=== PATIENT | female | born 1960 | race Caucasian/White ===

== ENCOUNTER → 2020-07-30 12:05 | Outpatient (CLI) | payer OTHER, SELFPAY ==
--- NOTE | 2020-07-30 12:10 | DI.US.S_ITS ---
PROCEDURE: US PERIPH VENOUS LOW EXTREM RT INDICATIONS: RIGHT THIGH PAIN TECHNIQUE: Real-time imaging, as well as color and pulse Doppler interrogation, were performed of the lower extremity deep veins from the inguinal ligament to the popliteal fossa. COMPARISON: None. FINDINGS: Occlusive superficial venous thrombus is seen in the proximal to mid right greater saphenous vein. The proximal extent is located near the confluence with the femoral vein. The common femoral, femoral and popliteal veins are normally compressible, and free of intraluminal thrombus. Color and pulse Doppler demonstrate normal phasic intraluminal flow. There is normal augmentation response to distal compression maneuver. IMPRESSION: Occlusive thrombus is seen within the superficial greater saphenous vein near its confluence with the femoral vein. No deep venous thrombosis is seen in the remainder of the right lower extremity. Findings were conveyed to the ordering physician, Dr. Tapia, by the manager switch on 07/30/2020 at 12:42 PM (Prentiss time). Dictated by: Dayton Morrison M.D. on 07/30/2020 at 12:05 Approved by: Dayton Morrison M.D. on 07/30/2020 at 12:12
== END ==
PROVIDERS: PCP Family Medicine; Referring Provider Family Medicine; Visit Provider Family Medicine
DX: I82.811 Embolism and thrombosis of superficial veins of right lower extremity (principal); M79.651 Pain in right thigh
CPT/HCPCS: 93971

== ENCOUNTER → 2023-03-19 12:17 | Outpatient (CLI) | payer OTHER, SELFPAY ==
--- NOTE | 2023-03-19 | DI.RAD.S_ITS ---
PROCEDURE: XR CHEST 2V INDICATIONS: Unspecified asthma, uncomplicated TECHNIQUE: 2 views of the chest were acquired. COMPARISON: [facility], , CHEST 2 VIEW, 07/12/2015, 18:49. FINDINGS: Surgical changes and devices: None. Lungs and pleura: Lungs are clear. No pleural effusions or pneumothorax. No interval change compared to 07/12/2015. Mediastinum: Mediastinal contours are normal. Heart size is normal. Bones and chest wall: No suspicious bony abnormalities. Soft tissues appear unremarkable. IMPRESSION: No acute cardiopulmonary abnormality is seen. Dictated by: Jose Alberto Sommers M.D. on 03/19/2023 at 15:06 Approved by: Jose Alberto Sommers M.D. on 03/19/2023 at 15:07
== END ==
PROVIDERS: PCP Family Medicine; Referring Provider Family Medicine; Visit Provider Family Medicine
DX: J45.909 Unspecified asthma, uncomplicated (principal)
CPT/HCPCS: 71046

== ENCOUNTER 2024-08-10 18:19 | Inpatient (IN) | payer OTHER, SELFPAY ==
[2024-08-10] VITALS (19 sets, daily range): BP systolic 130–203; BP diastolic 58–81; PULSE 89–102; RESP 12–24; TEMP 36.6; O2SAT 65–100; BMI 24.3
--- NOTE | 2024-08-10 18:33 | DI.RAD.S_ITS ---
PROCEDURE: XR CHEST 1V INDICATIONS: Shortness of breath TECHNIQUE: One view of the chest was acquired. COMPARISON: [facility], CR, XR CHEST 2V, 03/19/2023, 12:29. FINDINGS: Surgical changes and devices: None. Lungs and pleura: Lungs are clear. No pleural effusions or pneumothorax. Mediastinum: Mediastinal contours appear normal. Heart size is upper limits of normal. Atherosclerotic vascular calcification noted in the aortic arch. Bones and chest wall: No suspicious bony lesions. Overlying soft tissues appear unremarkable. IMPRESSION: No acute cardiopulmonary abnormality is seen. Approved by: Cory Noriega M.D. on 08/10/2024 at 18:04
[2024-08-10] MEDS: ALBUTEROL/IPRATROPIUM 3 ML AMPUL 6 ML INH (18:46)
--- NOTE | 2024-08-10 18:49 | EKG_ITS ---
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
[2024-08-10 18:51] LABS: INR 0.9 (0.9-1.3); Prothrombin Time 10.5 SECONDS (9.4-12.5)
--- NOTE | 2024-08-10 18:53 | ED.SOB ---
HPI - SOB/Dyspnea General Chief Complaint: Shortness of Breath/Dyspnea Stated Complaint: MUNSON, SOB, pulse ox 70 Time Seen by Provider: 08/10/24 18:44 Source: patient and family Mode of arrival: Ambulatory Limitations: no limitations History of Present Illness HPI Narrative: 64-year-old female history of Arnold Chiari malformation, scoliosis, asthma, smoker presents with cough, shortness of breath, wheezing, weakness started on Sunday gave herself a few DuoNebs without any significant relief of her symptoms came in today with O2 sat of 65% here on room air but denies chest pain fever chills runny nose sore throat or sick contacts. Other than what is stated 14 point review of system is negative Related Data Home Medications Medication Instructions Recorded Confirmed amlodipine 5 mg tablet 5 mg PO DAILY 08/10/24 08/10/24 aspirin 325 mg tablet 325 mg PO DAILY 08/10/24 08/10/24 cetirizine 10 mg tablet (Zyrtec) mg 08/10/24 hydrocodone 5 mg-acetaminophen 325 1 - 2 tab PO Q4H PRN pain 08/10/24 08/10/24 mg tablet ipratropium 0.5 mg-albuterol 3 mg ml inhalation 08/10/24 (2.5 mg base)/3 mL nebulization soln morphine 60 mg tablet,extended 60 mg PO 3XD 08/10/24 08/10/24 release ondansetron 4 mg disintegrating 4 mg PO Q4-6H PRN Nausea And 08/10/24 08/10/24 tablet Vomiting Allergies Allergy/AdvReac Type Severity Reaction Status Date / Time Morphine Allergy Unknown Uncoded 08/10/24 18:32 Review of Systems Review of Systems ROS Unobtainable: All systems reviewed & are unremarkable except as noted in HPI and below Patient History Medical History (Updated 08/10/24 @ 22:18 by Alexander Keane DO) Scoliosis High blood pressure Chiari malformation Asthma Surgical History (Updated 08/10/24 @ 18:37 by Marni Waggoner RN) S/P PROCESS PUMPER shunt Social History Smoking Status: Current every day smoker Smoking Status: Current every day smoker tobacco type: cigarettes Exam Narrative Exam Narrative: GENERAL: [85] year old patient appears stated age. Well-developed patient, in moderate distress. HEAD: Atraumatic. Normocephalic. EYES: Pupils equal round and reactive. Extraocular motions intact. No scleral icterus. No injection or drainage. ENT: Nose without bleeding, purulent drainage. Throat without erythema, tonsillar hypertrophy or exudate. Airway patent. NECK: Trachea midline. Non tender CARDIOVASCULAR: Regular rate and rhythm without murmurs, gallops, or rubs. RESPIRATORY: Coarse rhonchi b/l with faint wheeze at bases GASTROINTESTINAL: Abdomen soft, non-tender, nondistended. EXTREMITIES: No edema or joint tenderness. BACK: Nontender without deformity or crepitance. No flank tenderness. NEURO: AOx3. SKIN: No rash or erythema of visible areas Initial Vital Signs Initial Vital Signs: Vital Signs Pulse Rate 96 H 08/10/24 18:25 Respiratory Rate 24 08/10/24 18:25 Blood Pressure 176/81 H 08/10/24 18:25 Pulse Oximetry 65 L 08/10/24 18:25 Oxygen Delivery Method Room Air 08/10/24 18:25 Course Orders Ordered: ED Orders 08/10/24 18:32 Complete Blood Count AUTO DIFF Stat Comprehensive Metabolic Panel Stat Lactate (Lactic Acid) Stat NT-proBNP (BNP-Adult 18+) Stat Prothrombin Time INR Stat Troponin I Stat 08/10/24 18:33 XR chest 1V Stat EKG-12 Lead Stat Measure peak expiratory flow ONCE RT Consult Eval and Treat NOW 08/10/24 18:38 Covid-19 + FLU A/B + RSV - PCR Stat 08/10/24 19:23 Blood Culture Stat 08/10/24 19:35 CT angio chest PE protocol Stat 08/10/24 20:50 Arterial Blood Gas STAT Discontinued Medications Hydrocodone Bitart/Acetaminophen (Hydrocodone/Acet 5/325 Tablet) 1 tab PO NOW ONE Stop: 08/10/24 19:38 Last Admin: 08/10/24 19:42 Dose: 1 tab Documented By: CHRISTINA Albuterol/Ipratropium (Albuterol/Ipratropium 3 Ml Ampul) 6 ml INH NOW ONE Stop: 08/10/24 18:41 Last Admin: 08/10/24 18:46 Dose: 6 ml Documented By: LLOYD Albuterol/Ipratropium (Albuterol/Ipratropium 3 Ml Ampul) 3 ml INH NOW ONE Stop: 08/10/24 21:12 Last Admin: 08/10/24 21:18 Dose: 3 ml Documented By: LLOYD Ceftriaxone Sodium 1,000 mg/ (Sodium Chloride) 100 mls @ 200 mls/hr IV NOW ONE Stop: 08/10/24 20:52 Azithromycin 500 mg/ Dextrose 250 mls @ 250 mls/hr IV NOW ONE Stop: 08/10/24 20:52 Last Admin: 08/10/24 21:29 Dose: 250 mls/hr Documented By: CHRISTINA Methylprednisolone (Methylprednisolone 125 Mg/2 Ml Vial) 125 mg IV NOW ONE Stop: 08/10/24 18:53 Last Admin: 08/10/24 19:03 Dose: 125 mg Documented By: NICHOLAS Vital Signs Vital signs: Vital Signs - 8 hr 08/10/24 18:25 08/10/24 18:26 08/10/24 18:26 Pulse Rate 96 H 102 H Respiratory Rate 24 Blood Pressure 176/81 H 176/81 H Pulse Oximetry 65 L 77 L Oxygen Delivery Method Room Air Room Air Oxygen Flow Rate Fraction of Inspired Oxygen 08/10/24 18:30 08/10/24 18:42 08/10/24 18:46 Pulse Rate 92 H 91 H Respiratory Rate 21 22 24 Blood Pressure Pulse Oximetry 100 98 92 Oxygen Delivery Method Non -Rebreather Nasal Cannula Nasal Cannula Oxygen Flow Rate 15 2 2 Fraction of Inspired Oxygen 28 08/10/24 18:51 08/10/24 18:51 08/10/24 19:00 Pulse Rate 92 H Respiratory Rate 19 Blood Pressure 203/80 H 171/58 H Pulse Oximetry 94 Oxygen Delivery Method Nasal Cannula Oxygen Flow Rate 2 Fraction of Inspired Oxygen 08/10/24 19:00 08/10/24 19:01 08/10/24 19:30 Pulse Rate 91 H 91 H Respiratory Rate 21 14 Blood Pressure 171/58 H 147/68 H Pulse Oximetry 95 90 L Oxygen Delivery Method Nasal Cannula Oxygen Flow Rate 2 Fraction of Inspired Oxygen 08/10/24 19:30 08/10/24 20:00 08/10/24 20:00 Pulse Rate 92 H 92 H Respiratory Rate 12 18 Blood Pressure 147/71 H Pulse Oximetry 90 L Oxygen Delivery Method Nasal Cannula Oxygen Flow Rate 2 Fraction of Inspired Oxygen 08/10/24 20:30 08/10/24 21:00 08/10/24 21:18 Pulse Rate 91 H 91 H 89 Respiratory Rate 13 17 14 Blood Pressure Pulse Oximetry 92 90 L Oxygen Delivery Method Nasal Cannula Oxygen Flow Rate 4 Fraction of Inspired Oxygen 36 08/10/24 21:30 08/10/24 21:43 08/10/24 21:43 Pulse Rate 90 96 H Respiratory Rate 15 17 Blood Pressure 130/65 Pulse Oximetry 92 92 Oxygen Delivery Method Nasal Cannula Oxygen Flow Rate 4 Fraction of Inspired Oxygen MDM - SOB/Dyspnea Lab Data 08/10/24 18:32 08/10/24 18:32 Labs: Lab Results 08/10/24 08/10/24 08/10/24 Range/Units 18:32 18:38 20:33 WBC 9.1 (4.5-11.0) X10^3/uL RBC 4.69 (4.0-5.2) X10^6/uL Hgb 15.1 (12.0-16.0) g/dL Hct 43.9 (36-46) % MCV 93.7 (80-100) fL MCH 32.2 (26-34) PG MCHC 34.4 (30-36) % RDW 13.8 (11.6-14.8) % Plt Count 234 (150-400) X10^3/uL Neut % (Auto) 85.8 H (50-75) % Lymph % (Auto) 7.6 L (25-40) % Robeson % (Auto) 6.2 (3-14) % Eos % (Auto) 0.0 L (2-4) % Baso % (Auto) 0.4 (0-2) % Neut # (Auto) 7800 H (7220-0171) /uL Lymph # (Auto) 700 L (0740-8119) /uL Robeson # (Auto) 600 (0-900) /uL Eos # (Auto) 0 (0-450) /uL Baso # (Auto) 0 (0-100) /uL PT 10.5 (9.4-12.5) SECONDS INR 0.9 (0.9-1.3) ABG Sample Site ABG pH (7.35-7.45) ABG pCO2 (35-45) mmHg ABG pO2 (80-100) mmHg ABG HCO3 (23-27) mmol/L ABG Total CO2 (23-27) mmol/L ABG O2 Saturation (95-100) % ABG Base Excess (-2-3) mmol/L Ash Test O2 Delivery Device FiO2 % % Sodium 141 (137-145) mmol/L Potassium 3.8 (3.4-5.1) mmol/L Chloride 101 (98-107) mmol/L Carbon Dioxide 28 (22-32) mmol/L BUN 15 (7-17) mg/dL Creatinine 0.74 (0.52-1.04) mg/dL Estimated GFR > 60 (>60) mL/min BUN/Creatinine Ratio 20.3 (6-22) Glucose 169 H (80-110) mg/dL Lactate 2.5 H 1.8 (0.7-2.1) mmol/L Calcium 9.6 (8.4-10.2) mg/dL Total Bilirubin 0.6 (0.2-1.3) mg/dL AST 46 H (14-36) IU/L ALT 38 H (<35) IU/L Alkaline Phosphatase 114 (38-126) U/L Troponin I < 0.012 (0.01-0.034) ng/mL NT-Pro-B Natriuret Pep 5220 H (<125) pg/mL Total Protein 8.2 (6.3-8.2) g/dL Albumin 4.6 (3.5-5.0) g/dL Globulin 3.6 (1.7-4.1) g/dL Albumin/Globulin Ratio 1.3 (1.0-2.8) SARS-CoV-2 (PCR) Negative (Negative) Influenza A (RT-PCR) Flu a negative (NEGATIVE) Influenza B (RT-PCR) Flu b negative (NEGATIVE) RSV (PCR) Negative (Negative) 08/10/24 Range/Units 21:04 WBC (4.5-11.0) X10^3/uL RBC (4.0-5.2) X10^6/uL Hgb (12.0-16.0) g/dL Hct (36-46) % MCV (80-100) fL MCH (26-34) PG MCHC (30-36) % RDW (11.6-14.8) % Plt Count (150-400) X10^3/uL Neut % (Auto) (50-75) % Lymph % (Auto) (25-40) % Robeson % (Auto) (3-14) % Eos % (Auto) (2-4) % Baso % (Auto) (0-2) % Neut # (Auto) (6332-8321) /uL Lymph # (Auto) (9542-4651) /uL Robeson # (Auto) (0-900) /uL Eos # (Auto) (0-450) /uL Baso # (Auto) (0-100) /uL PT (9.4-12.5) SECONDS INR (0.9-1.3) ABG Sample Site Right radial ABG pH 7.37 (7.35-7.45) ABG pCO2 57.9 H (35-45) mmHg ABG pO2 57 L (80-100) mmHg ABG HCO3 33 H (23-27) mmol/L ABG Total CO2 33 H (23-27) mmol/L ABG O2 Saturation 87 L (95-100) % ABG Base Excess 6.2 H (-2-3) mmol/L Ash Test Positive O2 Delivery Device Cannula FiO2 % 32.0 % % Sodium (137-145) mmol/L Potassium (3.4-5.1) mmol/L Chloride (98-107) mmol/L Carbon Dioxide (22-32) mmol/L BUN (7-17) mg/dL Creatinine (0.52-1.04) mg/dL Estimated GFR (>60) mL/min BUN/Creatinine Ratio (6-22) Glucose (80-110) mg/dL Lactate (0.7-2.1) mmol/L Calcium (8.4-10.2) mg/dL Total Bilirubin (0.2-1.3) mg/dL AST (14-36) IU/L ALT (<35) IU/L Alkaline Phosphatase (38-126) U/L Troponin I (0.01-0.034) ng/mL NT-Pro-B Natriuret Pep (<125) pg/mL Total Protein (6.3-8.2) g/dL Albumin (3.5-5.0) g/dL Globulin (1.7-4.1) g/dL Albumin/Globulin Ratio (1.0-2.8) SARS-CoV-2 (PCR) (Negative) Influenza A (RT-PCR) (NEGATIVE) Influenza B (RT-PCR) (NEGATIVE) RSV (PCR) (Negative) Imaging Data Chest x-ray: Radiologist's Impression: [address] [address] XRay Report Signed Patient: Puneet Altamirano MR#: [id number] : 1960 Acct:[id number] Age/Sex: 64 / F Date of Service: 08/10/24 Loc: ED Accession Number: [id number] Procedure: XR chest 1V Ordering Provider: Alexander Keane D.O. PROCEDURE: XR CHEST 1V INDICATIONS: Shortness of breath TECHNIQUE: One view of the chest was acquired. COMPARISON: [facility], XR CHEST 2V, 03/19/2023, 12:29. FINDINGS: Surgical changes and devices: None. Lungs and pleura: Lungs are clear. No pleural effusions or pneumothorax. Mediastinum: Mediastinal contours appear normal. Heart size is upper limits of normal. Atherosclerotic vascular calcification noted in the aortic arch. Bones and chest wall: No suspicious bony lesions. Overlying soft tissues appear unremarkable. IMPRESSION: No acute cardiopulmonary abnormality is seen. Approved by: Cory Noriega M.D. on 08/10/2024 at 18:[address] [address] [address] Scan Report Signed Patient: Puneet Altamirano MR#: [id number] : 1960 Acct:[id number] Age/Sex: 64 / F Date of Service: 08/10/24 Loc: ED Accession Number: [id number] Procedure: CT angio chest PE protocol Ordering Provider: Alexander Keane D.O. PROCEDURE: CT ANGIO CHEST PE PROTOCOL INDICATIONS: sob hypoxia 02 sat 65 TECHNIQUE: After the administration of intravenous contrast, 2 mm thick sections acquired from the pulmonary apices to the posterior costophrenic angles. 3-dimensional maximum intensity projection (MIP) coronal and sagittal reformats were then acquired through the thorax. For radiation dose reduction, the following was used: automated exposure control, adjustment of mA and/or kV according to patient size. COMPARISON: [facility], XR CHEST 1V, 08/10/2024, 18:36. FINDINGS: Image quality: Diagnostic. Pulmonary arteries: Main pulmonary artery is measuring 3.1 cm, and demonstrate no intraluminal filling defects to suggest central pulmonary embolism. Lower Neck: No enlarged lymph nodes. Thyroid: No thyroid nodules which require sonographic follow up, per consensus guidelines. Axillae: No enlarged lymph nodes. Chest Wall: Unremarkable. Bones: Unremarkable. Lungs and Pleura: Multiple bilateral focal consolidative nodular opacities most in the lower lobe. Heart: Heart size is normal. No pericardial effusion. Thoracic Vessels: No aortic aneurysm. Mediastinum and Blank: Mediastinal lymph nodes. Esophagus: No wall thickening. No hiatal hernia. Upper Abdomen: Visualized upper abdomen solid organs and bowel loops appear normal. IMPRESSION: No pulmonary embolus. Borderline enlargement of the main pulmonary artery suggestive pulmonary artery hypertension. Bilateral focal and consolidative nodular opacities most suggestive of infection or inflammation. Recommend consideration for atypical etiology such as fungal and or mycobacterial. Interval follow up after appropriate therapy is recommended to document resolution. Dictated by: Peyton Juarez M.D. on 08/10/2024 at 20:42 Approved by: Peyton Juarez M.D. on 08/10/2024 at 20:45 ECG Data Attestation: I personally reviewed and interpreted this ECG as follows: Interpretation: NSR HR 89 MS 160 QRS [address]-t wave change NO old ekg to compare against MDM Narrative Medical decision making narrative: All lab work EKG chest x-ray CTA vital signs nurse triage note medication list old records all reviewed. Patient given Solu-Medrol 125 mg IV x1 DuoNebs x2 Rocephin 1 g Zithromax 500 mg IV x1 patient is now currently satting at 90% on 4 L of nasal cannula. Case discussed with Dr. Rhodes when hospitalist who has agreed for inpatient admission. Differential diagnosis include COVID flu RSV pneumonia COPD exacerbation CHF PN PE STEMI in NSTEMI Discharge Plan Departure Patient Disposition: Admitted As Inpatient Clinical Impression: Hypoxia Community acquired pneumonia Qualifiers: Laterality: unspecified laterality Qualified Code(s): J18.9 - Pneumonia, unspecified organism Admit Date/Time: 08/10/24 22:16 Admit Provider: Carmelo Harvey
[2024-08-10 18:54] LABS: Lactate (Lactic Acid) 2.5 mmol/L (0.7-2.1)
[2024-08-10 18:55] LABS: Alanine Aminotransferase 38 IU/L (<35); Albumin 4.6 g/dL (3.5-5.0); Albumin Globulin Ratio 1.3 (1.0-2.8); Alkaline Phosphatase 114 U/L (38-126); Aspartate Aminotransferase 46 IU/L (14-36); BUN Creatinine Ratio 20.3 (6-22); Bilirubin Total 0.6 mg/dL (0.2-1.3); Blood Urea Nitrogen 15 mg/dL (7-17); Calcium 9.6 mg/dL (8.4-10.2); Carbon Dioxide 28 mmol/L (22-32); Chloride 101 mmol/L (98-107); Estimated Glomerular Filt Rate > 60 mL/min (>60); Globulin 3.6 g/dL (1.7-4.1); Glucose 169 mg/dL (80-110); HEMOLYSIS < 15 (0-50); Potassium 3.8 mmol/L (3.4-5.1); Sodium 141 mmol/L (137-145); Total Protein 8.2 g/dL (6.3-8.2)
[2024-08-10 18:56] LABS: Add Manual Diff / Slide Review NO; Basophils Absolute Auto 0 /uL (0-100); Basophils Percent Auto 0.4 % (0-2); Eosinophils Absolute Auto 0 /uL (0-450); Hematocrit 43.9 % (36-46); Hemoglobin 15.1 g/dL (12.0-16.0); Lymphocytes Absolute Auto 700 /uL (1100-4500); Lymphocytes Percent Auto 7.6 % (25-40); Mean Corpuscular HGB Conc 34.4 % (30-36); Mean Corpuscular Hemoglobin 32.2 PG (26-34); Mean Corpuscular Volume 93.7 fL (80-100); Monocytes Absolute Auto 600 /uL (0-900); Monocytes Percent Auto 6.2 % (3-14); Neutrophils Absolute Auto 7800 /uL (1500-7000); Neutrophils Percent Auto 85.8 % (50-75); Platelet Count 234 X10^3/uL (150-400); Red Blood Cell Count 4.69 X10^6/uL (4.0-5.2); Red Cell Distribution Width 13.8 % (11.6-14.8); White Blood Cell Count 9.1 X10^3/uL (4.5-11.0)
[2024-08-10] MEDS: methylPREDNISolone 125 MG/2 ML VIAL IV (19:03)
[2024-08-10 19:06] LABS: NT-proBNP (BNP-Adult 18+) 5220 pg/mL (<125); Troponin I < 0.012 ng/mL (0.01-0.034)
[2024-08-10 19:20] LABS: Influenza A - CEPHEID Flu A NEGATIVE (NEGATIVE); Influenza B - CEPHEID Flu B NEGATIVE (NEGATIVE); Respiratory Syncytial Virus Negative (Negative)
[2024-08-10 19:21] LABS: COVID-19 CEPHEID 4-PLEX PCR Negative (Negative)
--- NOTE | 2024-08-10 19:35 | DI.CT.S_ITS ---
PROCEDURE: CT ANGIO CHEST PE PROTOCOL INDICATIONS: sob hypoxia 02 sat 65 TECHNIQUE: After the administration of intravenous contrast, 2 mm thick sections acquired from the pulmonary apices to the posterior costophrenic angles. 3-dimensional maximum intensity projection (MIP) coronal and sagittal reformats were then acquired through the thorax. For radiation dose reduction, the following was used: automated exposure control, adjustment of mA and/or kV according to patient size. COMPARISON: [facility], CR, XR CHEST 1V, 08/10/2024, 18:36. FINDINGS: Image quality: Diagnostic. Pulmonary arteries: Main pulmonary artery is measuring 3.1 cm, and demonstrate no intraluminal filling defects to suggest central pulmonary embolism. Lower Neck: No enlarged lymph nodes. Thyroid: No thyroid nodules which require sonographic follow up, per consensus guidelines. Axillae: No enlarged lymph nodes. Chest Wall: Unremarkable. Bones: Unremarkable. Lungs and Pleura: Multiple bilateral focal consolidative nodular opacities most in the lower lobe. Heart: Heart size is normal. No pericardial effusion. Thoracic Vessels: No aortic aneurysm. Mediastinum and Blank: Mediastinal lymph nodes. Esophagus: No wall thickening. No hiatal hernia. Upper Abdomen: Visualized upper abdomen solid organs and bowel loops appear normal. IMPRESSION: No pulmonary embolus. Borderline enlargement of the main pulmonary artery suggestive pulmonary artery hypertension. Bilateral focal and consolidative nodular opacities most suggestive of infection or inflammation. Recommend consideration for atypical etiology such as fungal and or mycobacterial. Interval follow up after appropriate therapy is recommended to document resolution. Dictated by: Peyton Juarez M.D. on 08/10/2024 at 20:42 Approved by: Peyton Juarez M.D. on 08/10/2024 at 20:45
[2024-08-10] MEDS: HYDROCODONE/ACET 5/325 TABLET 1 TAB PO (19:42)
[2024-08-10 20:15] LABS: Reflexed Lactate in 2 Hours Y
[2024-08-10 21:02] LABS: Lactate 2HR (Lactic Acid Rflx) 1.8 mmol/L (0.7-2.1)
[2024-08-10 21:09] LABS: Allen Test for ABG Passed? Positive; Base Excess ABG 6.2 mmol/L (-2-3); Blood Gas Collection Site Right Radial; Delivery System Cannula; HCO3 ABG 33 mmol/L (23-27); Oxygen Saturation ABG 87 % (95-100); PCO2 ABG 57.9 mmHg (35-45); PO2 ABG 57 mmHg (80-100); TCO2 ABG 33 mmol/L (23-27); pH ABG 7.37 (7.35-7.45)
[2024-08-10] MEDS: ALBUTEROL/IPRATROPIUM 3 ML AMPUL INH (21:18)
[2024-08-10] MEDS: AZITHROMYCIN 500 MG in DEXTROSE 5% IN WATER 250 ML 250 MG IV (21:29)
[2024-08-10] MEDS: cefTRIAXone 1,000 MG in SODIUM CHLORIDE 0.9% 100 ML 200 MG IV (22:35)
[2024-08-11] VITALS (13 sets, daily range): BP systolic 117–161; BP diastolic 50–72; PULSE 66–87; RESP 14–22; TEMP 36–36.9; O2SAT 88–93
[2024-08-11] MEDS: HEPARIN 5,000 UNIT/ML VIAL 5000 UNIT SUBCUT ×3 (00:01→21:40)
[2024-08-11] MEDS: ONDANSETRON 4 MG/2 ML INJ IV ×2 (00:01→06:32)
--- NOTE | 2024-08-11 03:34 | PM.HP.1 ---
History of Present Illness History of Present Illness Chief complaint: MUNSON, SOB, pulse ox 70 Narrative: 64-year-old female with past medical history of R no Chiari malformation, scoliosis, asthma/COPD not oxygen dependent and hypertension presented with shortness of breath. Per the patient's report, the patient has been experiencing seeing a cough, shortness of breath, wheezing that started 3 days ago. The patient did try some nebulizer at home but was still having difficulty breathing. Today the patient O2 sats was noted in the mid 60s on room air. The patient however denies any fever, chills, nausea, vomiting, diarrhea, chest pain or syncope. In the emergency room, the patient was hemodynamically stable. The patient was requiring 2 to 3 L of oxygen per nasal cannula. Chest x-ray suggest possible pneumonia as well as CT angio of the chest. However there is no PE. Right viral panels were negative. The patient was given azithromycin and ceftriaxone. Also DuoNeb's and Solu-Medrol were given. 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 Social History household members: family Smoking Status: Current every day smoker alcohol intake: never Meds Home Medications and Allergies Home Medications Medication Instructions Recorded Confirmed Type amlodipine 5 mg tablet 5 mg PO DAILY 08/10/24 08/10/24 History aspirin 325 mg tablet 325 mg PO DAILY 08/10/24 08/10/24 History cetirizine 10 mg tablet (Zyrtec) 5 mg DAILY 08/10/24 08/11/24 History hydrocodone 5 mg-acetaminophen 325 1 - 2 tab PO Q4H PRN pain 08/10/24 08/10/24 History mg tablet ipratropium 0.5 mg-albuterol 3 mg 1 ml inhalation PRN PRN Wheezing 08/10/24 08/11/24 History (2.5 mg base)/3 mL nebulization soln morphine 60 mg tablet,extended 60 mg PO 3XD 08/10/24 08/10/24 History release ondansetron 4 mg disintegrating 4 mg PO Q4-6H PRN Nausea And 08/10/24 08/10/24 History tablet Vomiting Allergies Allergy/AdvReac Type Severity Reaction Status Date / Time Morphine Allergy Unknown Uncoded 08/10/24 23:16 Review of Systems Review of Systems ROS: Yes All systems reviewed with the patient and are negative except as otherwise documented Exam Vital Signs (past 8 hours): - 08/10/24 20:00 08/10/24 20:00 08/10/24 20:30 Temperature Pulse Rate 92 H 91 H Respiratory Rate 18 13 Blood Pressure 147/71 H Pulse Oximetry 90 L 92 Oxygen Delivery Method Nasal Cannula Oxygen Flow Rate 2 Fraction of Inspired Oxygen 08/10/24 21:00 08/10/24 21:18 08/10/24 21:30 Temperature Pulse Rate 91 H 89 90 Respiratory Rate 17 14 15 Blood Pressure Pulse Oximetry 90 L 92 Oxygen Delivery Method Nasal Cannula Oxygen Flow Rate 4 Fraction of Inspired Oxygen 36 08/10/24 21:43 08/10/24 21:43 08/10/24 22:00 Temperature Pulse Rate 96 H Respiratory Rate 17 Blood Pressure 130/65 135/63 Pulse Oximetry 92 Oxygen Delivery Method Nasal Cannula Oxygen Flow Rate 4 Fraction of Inspired Oxygen 08/10/24 22:00 08/10/24 22:30 08/10/24 23:05 Temperature 97.9 F Pulse Rate 93 H 92 H 94 H Respiratory Rate 19 20 18 Blood Pressure 149/77 H Pulse Oximetry 92 92 90 L Oxygen Delivery Method Nasal Cannula Oxygen Flow Rate 4 Fraction of Inspired Oxygen 08/10/24 23:12 08/10/24 23:48 08/11/24 02:43 Temperature Pulse Rate Respiratory Rate Blood Pressure Pulse Oximetry 90 L 91 Oxygen Delivery Method Nasal Cannula Nasal Cannula Oxygen Flow Rate 4 4 Fraction of Inspired Oxygen Fraction of Inspired Oxygen 36 SaO2/FiO2 Ratio 250 Oxygen Delivery Method Nasal Cannula Oxygen Flow Rate 4 Narrative Exam Narrative: Physical Exam: GENERAL: The patient is not in any acute distressed. Awake and alert. HEENT: Nonicteric sclerae, PERRLA, EOMI. Oropharynx clear. Moist mucous membranes. Conjunctivae appear well perfused. HEART: Regular rate and rhythm without murmurs. No lower extremities edema. LUNGS: Clear to auscultation bilaterally. No wheezing, crackles or rhonchi ABDOMEN: Soft, positive bowel sounds, nontender. SKIN: No rash, no excessive bruising, petechiae, or purpura. NEUROLOGIC: AxO x 3. Cranial nerves II-XII intact without motor/sensory deficit. Objective Labs 08/10/24 18:32 08/10/24 18:32 Labs: Laboratory Results - last 24 hr 08/10/24 08/10/24 08/10/24 18:32 18:38 20:33 WBC 9.1 RBC 4.69 Hgb 15.1 Hct 43.9 MCV 93.7 MCH 32.2 MCHC 34.4 RDW 13.8 Plt Count 234 Neut % (Auto) 85.8 H Lymph % (Auto) 7.6 L [place] % (Auto) 6.2 Eos % (Auto) 0.0 L Baso % (Auto) 0.4 Neut # (Auto) 7800 H Lymph # (Auto) 700 L [place] # (Auto) 600 Eos # (Auto) 0 Baso # (Auto) 0 PT 10.5 INR 0.9 ABG Sample Site ABG pH ABG pCO2 ABG pO2 ABG HCO3 ABG Total CO2 ABG O2 Saturation ABG Base Excess Ash Test O2 Delivery Device FiO2 % Sodium 141 Potassium 3.8 Chloride 101 Carbon Dioxide 28 BUN 15 Creatinine 0.74 Estimated GFR > 60 BUN/Creatinine Ratio 20.3 Glucose 169 H Lactate 2.5 H 1.8 Calcium 9.6 Total Bilirubin 0.6 AST 46 H ALT 38 H Alkaline Phosphatase 114 Troponin I < 0.012 NT-Pro-B Natriuret Pep 5220 H Total Protein 8.2 Albumin 4.6 Globulin 3.6 Albumin/Globulin Ratio 1.3 SARS-CoV-2 (PCR) Negative Influenza A (RT-PCR) Flu a negative Influenza B (RT-PCR) Flu b negative RSV (PCR) Negative 08/10/24 21:04 WBC RBC Hgb Hct MCV MCH MCHC RDW Plt Count Neut % (Auto) Lymph % (Auto) [place] % (Auto) Eos % (Auto) Baso % (Auto) Neut # (Auto) Lymph # (Auto) [place] # (Auto) Eos # (Auto) Baso # (Auto) PT INR ABG Sample Site Right radial ABG pH 7.37 ABG pCO2 57.9 H ABG pO2 57 L ABG HCO3 33 H ABG Total CO2 33 H ABG O2 Saturation 87 L ABG Base Excess 6.2 H Ash Test Positive O2 Delivery Device Cannula FiO2 % 32.0 % Sodium Potassium Chloride Carbon Dioxide BUN Creatinine Estimated GFR BUN/Creatinine Ratio Glucose Lactate Calcium Total Bilirubin AST ALT Alkaline Phosphatase Troponin I NT-Pro-B Natriuret Pep Total Protein Albumin Globulin Albumin/Globulin Ratio SARS-CoV-2 (PCR) Influenza A (RT-PCR) Influenza B (RT-PCR) RSV (PCR) Assessment & Plan Assessment & Plan narrative: COPD/asthma exacerbation. Admit the patient to medical telemetry as inpatient. Continue Solu-Medrol and DuoNebs. Treat underlying infection. Pneumonia. Atypical. Viral respiratory panel negative. Continue azithromycin and ceftriaxone. Not septic at this time. Acute respiratory failure with hypoxemia. Currently on 3 L of oxygen per nasal cannula. Treat as above and wean down oxygen as able. Hypertension. Monitor blood pressure and resume home medication accordingly. DVT prophylaxis heparin subcu. CODE STATUS full code. Disposition likely home in 2 to 3 days. - As the provider of this telehealth evaluation, requested by the patient's evaluating physician, I attest that I introduced myself to the patient, provided my credentials and determined that telemedicine via a real-time, 2 way interactive audio and video platform is an appropriate and effective means of providing this service. - I reviewed the patient's chart and had a discussion with the member of the patient's treatment team. - The patient and I mutually agreed with continuation of this evaluation via telemedicine. The patient consented for the telemedicine evaluation. - This virtual encounter was taken place from [place]. The encounter was approximately 35 minutes. The nurse was present during the entire time of the encounter and was able to move the stethoscope in appropriate directions. The patient was evaluated at [facility]. Time-Based Coding :: [TOTAL MINUTES] spent with patient and on the chart (including review of chart, obtaining history, exam, reviewing outside data, placing orders, documenting exam and treatment plan, and counseling patient) on [DATE]. Quality VTE Deep Vein Thrombosis/Pulmonary Embolism Present on Admission: No
[2024-08-11] MEDS: ALBUTEROL/IPRATROPIUM 3 ML AMPUL INH ×4 (04:33→18:45)
[2024-08-11 05:32] LABS: Add Manual Diff / Slide Review NO; Basophils Absolute Auto 0 /uL (0-100); Basophils Percent Auto 0.2 % (0-2); Eosinophils Absolute Auto 0 /uL (0-450); Eosinophils Percent Auto 0.1 % (2-4); Hematocrit 41.8 % (36-46); Hemoglobin 14.2 g/dL (12.0-16.0); Lymphocytes Absolute Auto 600 /uL (1100-4500); Lymphocytes Percent Auto 9.2 % (25-40); Mean Corpuscular HGB Conc 34.1 % (30-36); Mean Corpuscular Hemoglobin 32.1 PG (26-34); Mean Corpuscular Volume 94.3 fL (80-100); Monocytes Absolute Auto 100 /uL (0-900); Neutrophils Absolute Auto 5600 /uL (1500-7000); Neutrophils Percent Auto 88.5 % (50-75); Platelet Count 189 X10^3/uL (150-400); Red Blood Cell Count 4.43 X10^6/uL (4.0-5.2); White Blood Cell Count 6.3 X10^3/uL (4.5-11.0)
[2024-08-11] MEDS: MORPHINE ER 15 MG TABLET 60 MG PO ×4 (05:39→17:17)
[2024-08-11] MEDS: HYDROCODONE/ACET 5/325 TABLET 1 TAB PO ×5 (05:40→21:39)
[2024-08-11] MEDS: methylPREDNISolone 125 MG/2 ML VIAL 60 MG IV ×4 (05:40→23:17)
[2024-08-11 05:45] LABS: Alanine Aminotransferase 30 IU/L (<35); Albumin 4.1 g/dL (3.5-5.0); Albumin Globulin Ratio 1.2 (1.0-2.8); Alkaline Phosphatase 101 U/L (38-126); Aspartate Aminotransferase 41 IU/L (14-36); BUN Creatinine Ratio 22.1 (6-22); Bilirubin Total 0.4 mg/dL (0.2-1.3); Blood Urea Nitrogen 15 mg/dL (7-17); Calcium 9.3 mg/dL (8.4-10.2); Carbon Dioxide 30 mmol/L (22-32); Chloride 101 mmol/L (98-107); Estimated Glomerular Filt Rate > 60 mL/min (>60); Globulin 3.3 g/dL (1.7-4.1); Glucose 133 mg/dL (80-110); HEMOLYSIS < 15 (0-50); Potassium 4.1 mmol/L (3.4-5.1); Sodium 139 mmol/L (137-145); Total Protein 7.4 g/dL (6.3-8.2)
[2024-08-11] MEDS: cefTRIAXone 1,000 MG in SODIUM CHLORIDE 0.9% 100 ML 200 MG IV (08:10)
[2024-08-11] MEDS: ASPIRIN EC 325 MG TABLET PO (08:10)
[2024-08-11] MEDS: AMLODIPINE 5 MG TABLET PO (08:10)
[2024-08-11] MEDS: ACETAMINOPHEN 325 MG TABLET 650 MG PO ×2 (11:55→17:17)
--- NOTE | 2024-08-11 15:19 | CM.DANOTE ---
Patient is a 64 yo female who was admitted on 08/10/24 for SOB/Pneumonia. Pt has [employer] for insurance and her PCP is Nestor Tapia. EMR was reviewed. Per MD, pt with hx of scoliosis and COPD and does not have home oxygen at baseline and admitted for COPD exacerbation and penumonia tx. Currently on IV-abx and steroids. Likely a couple days as pt on 3.5Lo2. SW met bedside with pt and Dtr and explained role and pt confirms she lives in [place] with her Dtr and son renato and her other Dtr lives just a few min away. Pt's family drove her to the emergency room and can provide transport home at d/c. 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 Pt preference is to d/c home with family when stable and does not anticipate any needs. No hx of HH or SNF. Plan: SW to follow for plan of d/c home via family POV when medically stable and hopeful to wean off oxygen. LILY Dixon Discharge Planning/Care Management CM Discharge Assessment Start: 08/11/24 15:17 Freq: Status: Active Protocol: Document 08/11/24 15:18 BF (Rec: 08/11/24 15:19 BF [id number]) Discharge Planning Assessment Assigned Antique Refinisher LILY Harman DPOA/Assigned Designee Name Dtr Nahed Advance Directives? No Advance Directives on File No History Provided By Patient,Family Member Has Patient been admitted in last 30 No days? Prior Living Arrangements House Household Members family Type of transporation used prior to Drives own vehicle admit Independent with ADL's Yes Is patient alert and oriented? Yes Caregiver for Another No Barriers to Discharge No Discharge Plan Home Transportation Arrangement Family plans to provide transport at d/c Referrals Initiated None needed Whiteboard Updated in Patient Room with Yes name and ext. # of Antique Refinisher Review Status In Process Please Provide Date Initial DC 08/11/24 Assessment Was Performed Next Review Type Continued Stay Review
--- NOTE | 2024-08-11 17:06 | P.PN_ITS ---
Subjective Subjective Date Patient Seen: 08/11/24 Time Patient Seen: 17:06 Interval history: Chief complaint: Shortness of breath and hypoxia secondary to pneumonia and exacerbation of COPD History of present illness: 64-year-old female with past medical history of R no Chiari malformation, scoliosis, asthma/COPD not oxygen dependent and hypertension presented with shortness of breath. Per the patient's report, the patient has been experiencing seeing a cough, shortness of breath, wheezing that started 3 days ago. The patient did try some nebulizer at home but was still having difficulty breathing. Today the patient O2 sats was noted in the mid 60s on room air. The patient however denies any fever, chills, nausea, vomiting, diarrhea, chest pain or syncope. In the emergency room, the patient was hemodynamically stable. The patient was requiring 2 to 3 L of oxygen per nasal cannula. Chest x-ray suggest possible pneumonia as well as CT angio of the chest. However there is no PE. Right viral panels were negative. The patient was given azithromycin and ceftriaxone. Also DuoNeb's and Solu-Medrol were given. 08/11: Patient coughing today no fevers night sweats or chills Review of systems: No loss of consciousness diplopia or blurred vision No difficulty swallowing No chest pain palpitations No abdominal pain nausea vomiting new line no paresthesia or paresis No urinary symptoms Physical exam: Mature female no acute distress HEENT unremarkable new line neck no carotid bruits no JVD Heart rat rhythm regular Lungs was shortened respiratory phases inspiratory expiratory wheezes Extremities no edema Assessment & Plan Assessment & Plan narrative: COPD/asthma exacerbation. Admit the patient to medical telemetry as inpatient. Continue Solu-Medrol and DuoNebs. Treat underlying infection. Pneumonia. Atypical. Viral respiratory panel negative. Continue azithromycin and ceftriaxone. Not septic at this time. Acute respiratory failure with hypoxemia. Currently on 3 L of oxygen per nasal cannula. Treat as above and wean down oxygen as able. Hypertension. Monitor blood pressure and resume home medication accordingly. DVT prophylaxis heparin subcu. CODE STATUS full code. Disposition likely home in 2 to 3 days. I spent 35 minutes in evaluation of this patient 50% of the time was with the patient in the room Exam Vital Signs (past 8 hours): - 08/11/24 11:29 08/11/24 12:00 Temperature 98.4 F Pulse Rate 79 Respiratory Rate 16 14 Blood Pressure 146/64 H Pulse Oximetry 91 91 Oxygen Delivery Method Nasal Cannula Oxygen Flow Rate 3.5 Fraction of Inspired Oxygen 34 SaO2/FiO2 Ratio 264 Oxygen Delivery Method Nasal Cannula Oxygen Flow Rate 3.5 Objective Labs 08/11/24 04:39 08/11/24 04:39 Labs: Laboratory Results - last 24 hr 08/10/24 08/10/24 08/10/24 18:32 18:38 20:33 WBC 9.1 RBC 4.69 Hgb 15.1 Hct 43.9 MCV 93.7 MCH 32.2 MCHC 34.4 RDW 13.8 Plt Count 234 Neut % (Auto) 85.8 H Lymph % (Auto) 7.6 L [place] % (Auto) 6.2 Eos % (Auto) 0.0 L Baso % (Auto) 0.4 Neut # (Auto) 7800 H Lymph # (Auto) 700 L [place] # (Auto) 600 Eos # (Auto) 0 Baso # (Auto) 0 PT 10.5 INR 0.9 ABG Sample Site ABG pH ABG pCO2 ABG pO2 ABG HCO3 ABG Total CO2 ABG O2 Saturation ABG Base Excess Ash Test O2 Delivery Device FiO2 % Sodium 141 Potassium 3.8 Chloride 101 Carbon Dioxide 28 BUN 15 Creatinine 0.74 Estimated GFR > 60 BUN/Creatinine Ratio 20.3 Glucose 169 H Lactate 2.5 H 1.8 Calcium 9.6 Total Bilirubin 0.6 AST 46 H ALT 38 H Alkaline Phosphatase 114 Troponin I < 0.012 NT-Pro-B Natriuret Pep 5220 H Total Protein 8.2 Albumin 4.6 Globulin 3.6 Albumin/Globulin Ratio 1.3 SARS-CoV-2 (PCR) Negative Influenza A (RT-PCR) Flu a negative Influenza B (RT-PCR) Flu b negative RSV (PCR) Negative 08/10/24 08/11/24 21:04 04:39 WBC 6.3 RBC 4.43 Hgb 14.2 Hct 41.8 MCV 94.3 MCH 32.1 MCHC 34.1 RDW 14.0 Plt Count 189 Neut % (Auto) 88.5 H Lymph % (Auto) 9.2 L [place] % (Auto) 2.0 L Eos % (Auto) 0.1 L Baso % (Auto) 0.2 Neut # (Auto) 5600 Lymph # (Auto) 600 L [place] # (Auto) 100 Eos # (Auto) 0 Baso # (Auto) 0 PT INR ABG Sample Site Right radial ABG pH 7.37 ABG pCO2 57.9 H ABG pO2 57 L ABG HCO3 33 H ABG Total CO2 33 H ABG O2 Saturation 87 L ABG Base Excess 6.2 H Ash Test Positive O2 Delivery Device Cannula FiO2 % 32.0 % Sodium 139 Potassium 4.1 Chloride 101 Carbon Dioxide 30 BUN 15 Creatinine 0.68 Estimated GFR > 60 BUN/Creatinine Ratio 22.1 H Glucose 133 H Lactate Calcium 9.3 Total Bilirubin 0.4 AST 41 H ALT 30 Alkaline Phosphatase 101 Troponin I NT-Pro-B Natriuret Pep Total Protein 7.4 Albumin 4.1 Globulin 3.3 Albumin/Globulin Ratio 1.2 SARS-CoV-2 (PCR) Influenza A (RT-PCR) Influenza B (RT-PCR) RSV (PCR) [facility] Medical History (Updated 08/10/24 @ 22:18 by Alexander Keane DO) Scoliosis High blood pressure Chiari malformation Asthma Surgical History (Updated 08/10/24 @ 18:37 by Marni Waggoner RN) S/P ORAL AND 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 Quality VTE Deep Vein Thrombosis/Pulmonary Embolism Present on Admission: No
[2024-08-11] MEDS: AZITHROMYCIN 500 MG in DEXTROSE 5% IN WATER 250 ML 250 MG IV (17:17)
[2024-08-12] VITALS (8 sets, daily range): BP systolic 137–152; BP diastolic 56–72; PULSE 59–92; RESP 16–20; TEMP 36.3–36.6; O2SAT 90–93
[2024-08-12] MEDS: HYDROCODONE/ACET 5/325 TABLET 1 TAB PO ×5 (03:11→22:41)
[2024-08-12] MEDS: ALBUTEROL/IPRATROPIUM 3 ML AMPUL INH ×4 (03:19→19:34)
[2024-08-12] MEDS: methylPREDNISolone 125 MG/2 ML VIAL 60 MG IV ×3 (05:26→17:56)
[2024-08-12] MEDS: MORPHINE ER 15 MG TABLET 60 MG PO ×3 (05:26→18:45)
[2024-08-12] MEDS: cefTRIAXone 1,000 MG in SODIUM CHLORIDE 0.9% 100 ML 200 MG IV (09:16)
[2024-08-12] MEDS: AMLODIPINE 5 MG TABLET PO (09:17)
[2024-08-12] MEDS: ASPIRIN EC 325 MG TABLET PO (09:17)
[2024-08-12] MEDS: HEPARIN 5,000 UNIT/ML VIAL 5000 UNIT SUBCUT (09:17)
[2024-08-12] MEDS: SODIUM CHLORIDE 0.9% FLUSH 10 ML IV (09:20)
--- NOTE | 2024-08-12 12:02 | DI.RAD.S_ITS ---
PROCEDURE: XR CHEST 2V INDICATIONS: pna TECHNIQUE: 2 views of the chest were acquired. COMPARISON: [facility], CT, CT ANGIO CHEST PE PROTOCOL, 08/10/2024, 20:00. [facility], CR, XR CHEST 1V, 08/10/2024, 18:36. [facility], CR, XR CHEST 2V, 03/19/2023, 12:29. FINDINGS: Surgical changes and devices: None. Lungs and pleura: Diffuse bilateral reticulonodular opacities. Small left basilar consolidation. No pneumothorax. Mediastinum: Cardiac silhouette is mildly enlarged. Bones and chest wall: No suspicious bony abnormalities. Soft tissues appear unremarkable. IMPRESSION: No significant change in bilateral reticulonodular opacities and left basilar consolidation. Approved by: Dayton Morrison M.D. on 08/12/2024 at 12:33
[2024-08-12] MEDS: AZITHROMYCIN 500 MG in DEXTROSE 5% IN WATER 250 ML 250 MG IV (17:55)
--- NOTE | 2024-08-12 18:27 | PM.PN.1 ---
Subjective Subjective Date Patient Seen: 08/12/24 Time Patient Seen: 18:27 Interval history: Chief complaint: Shortness of breath and hypoxia secondary to pneumonia and exacerbation of COPD History of present illness: 64-year-old female with past medical history of scoliosis, asthma/COPD not oxygen dependent and hypertension presented with shortness of breath. Per the patient's report, the patient has been experiencing seeing a cough, shortness of breath, wheezing that started 3 days ago. The patient did try some nebulizer at home but was still having difficulty breathing. Today the patient O2 sats was noted in the mid 60s on room air. The patient however denies any fever, chills, nausea, vomiting, diarrhea, chest pain or syncope. In the emergency room, the patient was hemodynamically stable. The patient was requiring 2 to 3 L of oxygen per nasal cannula. Chest x-ray suggest possible pneumonia as well as CT angio of the chest. However there is no PE. Right viral panels were negative. The patient was given azithromycin and ceftriaxone. Also DuoNeb's and Solu-Medrol were given. 08/11: Patient coughing today no fevers night sweats or chills Review of systems: No loss of consciousness diplopia or blurred vision No difficulty swallowing No chest pain palpitations No abdominal pain nausea vomiting new line no paresthesia or paresis No urinary symptoms Physical exam: Mature female no acute distress HEENT unremarkable new line neck no carotid bruits no JVD Heart rat rhythm regular Lungs was shortened respiratory phases inspiratory expiratory wheezes Extremities no edema Assessment & Plan COPD/asthma exacerbation. Taper Solu-Medrol down to prednisone continue l and DuoNebs. Treating underlying infection. Pneumonia. Atypical. Viral respiratory panel negative. Continue azithromycin and ceftriaxone. Not septic at this time. Acute respiratory failure with hypoxemia. Currently on 1.5 L of oxygen per nasal cannula. Treat as above and wean down oxygen as able. Hypertension. Monitor blood pressure and resume home medication accordingly. DVT prophylaxis heparin subcu. CODE STATUS full code. Disposition likely home in 2days. I spent 35 minutes in evaluation of this patient 50% of the time was with the patient in the room Exam Vital Signs (past 8 hours): - 08/12/24 14:05 Pulse Oximetry 92 Oxygen Delivery Method Nasal Cannula Oxygen Flow Rate 2 Fraction of Inspired Oxygen 28 Fraction of Inspired Oxygen 28 SaO2/FiO2 Ratio 328 Oxygen Delivery Method Nasal Cannula Oxygen Flow Rate 2 Objective Labs 04/07/25 04:39 08/11/24 04:39 [facility] Medical History (Updated 08/10/24 @ 22:18 by Alexander Keane DO) Scoliosis High blood pressure Chiari malformation Asthma Surgical History (Updated 08/10/24 @ 18:37 by Marni Waggoner RN) 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 Quality VTE Deep Vein Thrombosis/Pulmonary Embolism Present on Admission: No
[2024-08-13] VITALS (8 sets, daily range): BP systolic 136–160; BP diastolic 65–70; PULSE 57–82; RESP 16–18; TEMP 36.2–36.6; O2SAT 90–97
[2024-08-13] MEDS: HYDROCODONE/ACET 5/325 TABLET 1 TAB PO ×4 (04:02→21:12)
[2024-08-13] MEDS: ALBUTEROL/IPRATROPIUM 3 ML AMPUL INH ×4 (04:18→20:31)
[2024-08-13] MEDS: MORPHINE ER 15 MG TABLET 60 MG PO ×3 (05:01→18:50)
[2024-08-13] MEDS: AMLODIPINE 5 MG TABLET PO (08:43)
[2024-08-13] MEDS: ASPIRIN EC 325 MG TABLET PO (08:43)
[2024-08-13] MEDS: AZITHROMYCIN 250 MG TABLET PO (09:04)
[2024-08-13] MEDS: predniSONE 20 MG TABLET PO (09:04)
[2024-08-13] MEDS: CEFDINIR 300 MG CAPSULE PO ×2 (09:05→20:11)
[2024-08-13] MEDS: cefTRIAXone 1,000 MG in SODIUM CHLORIDE 0.9% 100 ML 200 MG IV (10:19)
--- NOTE | 2024-08-13 17:40 | P.PN_ITS ---
Subjective Subjective Date Patient Seen: 08/13/24 Time Patient Seen: 17:40 Interval history: Chief complaint: Shortness of breath and hypoxia secondary to pneumonia and exacerbation of COPD History of present illness: 64-year-old female with past medical history of scoliosis, asthma/COPD not oxygen dependent and hypertension presented with shortness of breath. Per the patient's report, the patient has been experiencing seeing a cough, shortness of breath, wheezing that started 3 days ago. The patient did try some nebulizer at home but was still having difficulty breathing. Today the patient O2 sats was noted in the mid 60s on room air. The patient however denies any fever, chills, nausea, vomiting, diarrhea, chest pain or syncope. In the emergency room, the patient was hemodynamically stable. The patient was requiring 2 to 3 L of oxygen per nasal cannula. Chest x-ray suggest possible pneumonia as well as CT angio of the chest. However there is no PE. Right viral panels were negative. The patient was given azithromycin and ceftriaxone. Also DuoNeb's and Solu-Medrol were given. 08/11: Patient coughing today no fevers night sweats or chills 08/12: Patient having coughing but seeming to feel subjectively better 08/13: Continuing with antibiotics but p.o. getting hoped O2 evaluation and plan for discharge home in 24 hours on oral antibiotics steroids and oxygen follow-up with PCP Review of systems: No loss of consciousness diplopia or blurred vision No difficulty swallowing No chest pain palpitations No abdominal pain nausea vomiting new line no paresthesia or paresis No urinary symptoms Physical exam: Mature female no acute distress HEENT unremarkable new line neck no carotid bruits no JVD Heart rat rhythm regular Lungs was shortened respiratory phases inspiratory expiratory wheezes Extremities no edema Assessment & Plan COPD/asthma exacerbation. Taper Solu-Medrol down to prednisone continue l and DuoNebs. Treating underlying infection. Pneumonia. Atypical. Viral respiratory panel negative. Continue azithromycin and ceftriaxone. Not septic at this time. Acute respiratory failure with hypoxemia. Currently on 1.5 L of oxygen per nasal cannula. Treat as above and wean down oxygen as able. Hypertension. Monitor blood pressure and resume home medication accordingly. DVT prophylaxis heparin subcu. CODE STATUS full code. Disposition likely home tomorrow I spent 35 minutes in evaluation of this patient 50% of the time was with the patient in the room Exam Vital Signs (past 8 hours): - 08/13/24 12:00 08/13/24 13:52 Temperature 97.9 F Pulse Rate 68 72 Respiratory Rate 18 18 Blood Pressure 145/70 H Pulse Oximetry 91 93 Oxygen Delivery Method Oximask Oxygen Flow Rate 1 1 Fraction of Inspired Oxygen 28 SaO2/FiO2 Ratio 346 Oxygen Delivery Method Oximask Oxygen Flow Rate 1 Objective Labs 08/11/24 04:39 08/11/24 04:39 PFSH Medical History (Updated 08/10/24 @ 22:18 by Alexander Keane DO) Scoliosis High blood pressure Chiari malformation Asthma Surgical History (Updated 08/10/24 @ 18:37 by Marni Waggoner RN) 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 Quality VTE Deep Vein Thrombosis/Pulmonary Embolism Present on Admission: No
[2024-08-13] MEDS: SODIUM CHLORIDE 0.9% FLUSH 10 ML IV (21:14)
[2024-08-14 00:52] VITALS: PULSE 72; RESP 16; O2SAT 92
[2024-08-14] MEDS: ALBUTEROL/IPRATROPIUM 3 ML AMPUL INH ×3 (00:52→12:22)
[2024-08-14] MEDS: HYDROCODONE/ACET 5/325 TABLET 1 TAB PO ×3 (01:01→12:15)
[2024-08-14] MEDS: MORPHINE ER 15 MG TABLET 60 MG PO ×2 (05:35→12:15)
[2024-08-14 07:40] VITALS: O2SAT 92
[2024-08-14 08:00] VITALS: BP 146/70; PULSE 73; RESP 18; TEMP 36.6; O2SAT 95
--- NOTE | 2024-08-14 08:03 | P.DS_ITS ---
History of Present Illness History of Present Illness Date Patient Seen: 08/14/24 Chief complaint: MUNSON, SOB, pulse ox 70 Narrative: Chief complaint: Shortness of breath and hypoxia secondary to pneumonia and exacerbation of COPD History of present illness: 64-year-old female with past medical history of scoliosis, asthma/COPD not oxygen dependent and hypertension presented with shortness of breath. Per the patient's report, the patient has been experiencing seeing a cough, shortness of breath, wheezing that started 3 days ago. The patient did try some nebulizer at home but was still having difficulty breathing. Today the patient O2 sats was noted in the mid 60s on room air. The patient however denies any fever, chills, nausea, vomiting, diarrhea, chest pain or syncope. In the emergency room, the patient was hemodynamically stable. The patient was requiring 2 to 3 L of oxygen per nasal cannula. Chest x-ray suggest possible pneumonia as well as CT angio of the chest. However there is no PE. Right viral panels were negative. The patient was given azithromycin and ceftriaxone. Also DuoNeb's and Solu-Medrol were given. 08/11: Patient coughing today no fevers night sweats or chills 08/12: Patient having coughing but seeming to feel subjectively better 08/13: Continuing with antibiotics but p.o. getting hoped O2 evaluation and plan for discharge home in 24 hours on oral antibiotics steroids and oxygen follow-up with PCP 08/14: Patient discharged home on home oxygen nebulizer Review of systems: No loss of consciousness diplopia or blurred vision No difficulty swallowing No chest pain palpitations No abdominal pain nausea vomiting new line no paresthesia or paresis No urinary symptoms Physical exam: Mature female no acute distress HEENT unremarkable new line neck no carotid bruits no JVD Heart rat rhythm regular Lungs was shortened respiratory phases inspiratory expiratory wheezes Extremities no edema Assessment & Plan COPD/asthma exacerbation. Tapered Solu-Medrol down to prednisone continue l and DuoNebs. We will need oxygen at home. CODE STATUS full code. Disposition discharge home with home O2 nebulizer I spent 35 minutes in evaluation of this patient 50% of the time was with the patient in the room Discharge Providers Provider Date of admission: 08/10/24 22:16 Discharge Date: 08/14/24 Primary care physician: Nestor Tapia MD Discharge provider: Hakeem Adam MD Exam Vital Signs (past 8 hours): - 08/14/24 00:52 08/14/24 07:40 Pulse Rate 72 Respiratory Rate 16 Pulse Oximetry 92 92 Oxygen Delivery Method Oximask Oximask Oxygen Flow Rate 2 2 Fraction of Inspired Oxygen 28 Fraction of Inspired Oxygen 28 SaO2/FiO2 Ratio 328 Oxygen Delivery Method Oximask Oxygen Flow Rate 2 Objective Labs 08/11/24 04:39 08/11/24 04:39 PFSH Medical History (Updated 08/10/24 @ 22:18 by Alexander Keane DO) Scoliosis High blood pressure Chiari malformation Asthma Surgical History (Updated 08/10/24 @ 18:37 by Marni Waggoner RN) S/P VEHICLE WINDOW TINTER shunt Social History household members: family Smoking Status: Current every day smoker alcohol intake: never Discharge Plan Discharge Plan Patient Disposition: Home Discharge orders & Medications Prescriptions: New ipratropium-albuterol 0.5 mg-3 mg(2.5 mg base)/3 mL Solution For Nebulization 3 ml INH RTQ4HR PRN (Reason: Shortness Of Breath) Qty: 100 0RF prednisone 20 mg Tablet 20 mg PO DAILY Qty: 7 0RF cefdinir 300 mg Capsule 300 mg PO BID Qty: 10 0RF Continued morphine 60 mg tablet extended release 60 mg PO 3XD hydrocodone-acetaminophen 5-325 mg tablet 1 - 2 tab PO Q4H PRN (Reason: pain) ipratropium-albuterol 0.5 mg-3 mg(2.5 mg base)/3 mL Solution For Nebulization 1 ml INHALATION PRN PRN (Reason: Wheezing) cetirizine [Zyrtec] 10 mg Tablet 5 mg DAILY amlodipine 5 mg tablet 5 mg PO DAILY aspirin 325 mg Tablet 325 mg PO DAILY ondansetron 4 mg tablet,disintegrating 4 mg PO Q4-6H PRN (Reason: Nausea And Vomiting) Follow up/Referrals: Nestor Tapia MD [Primary Care Provider] - Diet/Activity/Treatments Diet: Diet as Tolerated Oxygen: 2L NC concentrator Other treatments: Nebulizer for duonebs Visit Report/Discharge Packet Stand Alone Forms: Patient Portal/API Discharge Data Primary Care Provider: Nestor Tapia Quality VTE Deep Vein Thrombosis/Pulmonary Embolism Present on Admission: No
[2024-08-14] MEDS: predniSONE 20 MG TABLET PO (09:08)
[2024-08-14] MEDS: SODIUM CHLORIDE 0.9% FLUSH 10 ML IV (09:08)
[2024-08-14] MEDS: CEFDINIR 300 MG CAPSULE PO (09:08)
[2024-08-14] MEDS: ASPIRIN EC 325 MG TABLET PO (09:08)
[2024-08-14] MEDS: AMLODIPINE 5 MG TABLET PO (09:08)
--- NOTE | 2024-08-14 11:52 | CM.DPC ---
DCP Cont. Reviewed EMR and team rounds for status updates. Pt has been medically cleared for home d/c. No further CM d/c needs indicated at this time.
--- NOTE | 2024-08-14 12:36 | PC.NURSE ---
Pt sitting in chair all day. Med for discomfort x 2 w/ good relief. RT TX as needed. Plans for home oxygen arranged Orders for D/C received. Home instructions given. Pt D/C'ing home w/ O2 tank Pt escorted by staff via W/C to waiting vehcle D/C in stable condition.
== END 2024-08-14 12:50 | disposition home or self-care (01) | DRG 193 ==
LOC: ED 18:44 → AC 22:17
PROVIDERS: Admitting Provider Internal Medicine; Emergency Provider Family Medicine; PCP Family Medicine; Referring Provider Family Medicine; Visit Provider Internal Medicine
DX: J18.9 Pneumonia, unspecified organism (principal); J96.01 Acute respiratory failure with hypoxia; J44.1 Chronic obstructive pulmonary disease with (acute) exacerbation; J44.0 Chronic obstructive pulmonary disease with (acute) lower respiratory infection; Q04.8 Other specified congenital malformations of brain; F17.200 Nicotine dependence, unspecified, uncomplicated; I10 Essential (primary) hypertension
CPT/HCPCS: 0241U; 36415; 36600; 71045; 71046; 71275; 80053; 82805; 83605; 83880; 84484; 85025; 85610; 87040; 93005; 94618; 94640; 94760; 94762; 96365; 96375; 99285; J0696; J1644; J2405; J2919; Q9967

== ENCOUNTER → 2024-10-21 16:05 | Outpatient (CLI) | payer OTHER, SELFPAY ==
[2024-08-10 22:27] VITALS: BMI 24.3
--- NOTE | 2024-10-21 16:11 | DI.RAD.S_ITS ---
PROCEDURE: XR SINUS <3V INDICATIONS: SINUS SERIES TECHNIQUE: 4 views of the sinuses were acquired. COMPARISON: None. FINDINGS: Sinuses: The visualized sinuses demonstrate no air-fluid levels or mucosal thickening. The visualized mastoids also appear clear. Bones: No suspicious bony lesions. Nasal septum is midline. IMPRESSION: No air-fluid levels to suggest acute sinusitis. Dictated by: Rc Douglas M.D. on 10/22/2024 at 21:54 Approved by: Rc Douglas M.D. on 10/22/2024 at 21:55
--- NOTE | 2024-10-21 16:12 | DI.RAD.S_ITS ---
PROCEDURE: XR CHEST 2V INDICATIONS: CRX/HX OF Pneumonia TECHNIQUE: 2 views of the chest were acquired. COMPARISON: [facility], CR, XR CHEST 2V, 08/12/2024, 12:08. FINDINGS: Surgical changes and devices: None. Lungs and pleura: Mild patchy bibasilar infiltrate. Chronic appearing bilateral interstitial pulmonary markings. No evidence of consolidation. No pleural effusions or pneumothorax. Mediastinum: Mediastinal contours are normal. Heart size is normal. Atherosclerotic vascular calcifications. Bones and chest wall: No suspicious bony abnormalities. Soft tissues appear unremarkable. IMPRESSION: Mild patchy bibasilar infiltrate. Chronic appearing bilateral interstitial pulmonary markings. Dictated by: Rc Douglas M.D. on 10/22/2024 at 21:55 Approved by: Rc Douglas M.D. on 10/22/2024 at 21:56
[2024-10-21 17:03] LABS: Add Manual Diff / Slide Review NO; Basophils Absolute Auto 100 /uL (0-100); Eosinophils Absolute Auto 200 /uL (0-450); Eosinophils Percent Auto 2.7 % (2-4); Hematocrit 38.1 % (36-46); Lymphocytes Absolute Auto 2400 /uL (1100-4500); Lymphocytes Percent Auto 34.1 % (25-40); Mean Corpuscular HGB Conc 34.1 % (30-36); Mean Corpuscular Hemoglobin 32.1 PG (26-34); Mean Corpuscular Volume 94.2 fL (80-100); Monocytes Absolute Auto 500 /uL (0-900); Monocytes Percent Auto 6.5 % (3-14); Neutrophils Absolute Auto 3900 /uL (1500-7000); Neutrophils Percent Auto 55.7 % (50-75); Platelet Count 304 X10^3/uL (150-400); Red Blood Cell Count 4.04 X10^6/uL (4.0-5.2); Red Cell Distribution Width 13.9 % (11.6-14.8)
[2024-10-21 17:25] LABS: Alanine Aminotransferase 17 IU/L (<35); Albumin 4.3 g/dL (3.5-5.0); Albumin Globulin Ratio 1.6 (1.0-2.8); Alkaline Phosphatase 95 U/L (38-126); Aspartate Aminotransferase 26 IU/L (14-36); BUN Creatinine Ratio 10.1 (6-22); Bilirubin Total 0.5 mg/dL (0.2-1.3); Blood Urea Nitrogen 7 mg/dL (7-17); Calcium 9.6 mg/dL (8.4-10.2); Carbon Dioxide 34 mmol/L (22-32); Chloride 98 mmol/L (98-107); Estimated Glomerular Filt Rate > 60 mL/min (>60); Globulin 2.7 g/dL (1.7-4.1); Glucose 94 mg/dL (70-99); HEMOLYSIS < 15 (0-50); Magnesium 1.7 mg/dL (1.6-2.3); Potassium 3.5 mmol/L (3.4-5.1); Sodium 139 mmol/L (137-145)
[2024-10-21 17:42] LABS: Vitamin D 25 Hydroxy (D3) 54.4 ng/mL (30.0-100.0)
[2024-10-21 18:01] LABS: Thyroid Stimulating Hormone 2.09 uIU/mL (0.47-4.68)
[2024-10-21 18:20] LABS: Vitamin B12 > 1000 pg/mL (239-931)
== END ==
PROVIDERS: PCP Family Medicine; Referring Provider Family Medicine; Visit Provider Family Medicine
DX: D51.9 Vitamin B12 deficiency anemia, unspecified (principal); E55.9 Vitamin D deficiency, unspecified; E61.2 Magnesium deficiency; J12.89 Other viral pneumonia; Z13.0 Encounter for screening for diseases of the blood and blood-forming organs and certain disorders involving the immune mechanism; Z13.29 Encounter for screening for other suspected endocrine disorder; Z13.228 Encounter for screening for other metabolic disorders
CPT/HCPCS: 36415; 70210; 71046; 80053; 82306; 82607; 83735; 84443; 85025

== ENCOUNTER → 2024-12-15 12:11 | Outpatient (CLI) | payer OTHER, SELFPAY ==
[2024-08-10 22:27] VITALS: BMI 24.3
--- NOTE | 2024-12-15 12:13 | DI.RAD.S_ITS ---
PROCEDURE: XR CHEST 2V INDICATIONS: COUGH TECHNIQUE: 2 views of the chest were acquired. COMPARISON: [facility], CR, XR CHEST 2V, 10/21/2024, 16:13. FINDINGS: Heart, mediastinum and pulmonary vascular: Heart is mildly enlarged-increased from prior exam. Mediastinum is unremarkable. Pulmonary vascular is slightly distended Lungs: Minor airspace disease in the posterior right lower lobe is likely atelectasis or fibrosis. No definite infiltrates Pleural spaces: Small bilateral pleural effusions blunt the posterior costophrenic angles. Bones and soft tissues: Mild chronic wedging of all thoracic vertebral bodies noted. Syndesmophytes bridging thoracic vertebral bodies suggesting chronic ankylosing spondylitis. IMPRESSION: Mild CHF or volume overload is suspected. Please correlate with BNP and other clinical parameters supportive or refuted for CHF. Chronic ankylosing spondylitis Dictated by: Alexander Yuan M.D. on 12/16/2024 at 9:46 Approved by: Alexander Yuan M.D. on 12/16/2024 at 9:48
== END ==
PROVIDERS: PCP Family Medicine; Referring Provider Family Medicine; Visit Provider Family Medicine
DX: M48.54XA Collapsed vertebra, not elsewhere classified, thoracic region, initial encounter for fracture (principal); J90 Pleural effusion, not elsewhere classified; R05.9 Cough, unspecified; M45.4 Ankylosing spondylitis of thoracic region; I51.7 Cardiomegaly
CPT/HCPCS: 71046

== ENCOUNTER → 2025-01-12 12:23 | Outpatient (CLI) | payer OTHER, SELFPAY ==
[2024-08-10 22:27] VITALS: BMI 24.3
--- NOTE | 2025-01-12 12:26 | DI.RAD.S_ITS ---
PROCEDURE: XR CHEST 2V INDICATIONS: COUGH TECHNIQUE: 2 views of the chest were acquired. COMPARISON: [facility], CR, XR CHEST 2V, 12/15/2024, 11:22. FINDINGS: Surgical changes and devices: None. Lungs and pleura: Lungs are clear. Chronic appearing left lung base scarring and or atelectasis. No pleural effusions or pneumothorax. Mediastinum: Mediastinal contours are normal. Heart size is normal. Bones and chest wall: No suspicious bony abnormalities. Soft tissues appear unremarkable. IMPRESSION: No acute cardiopulmonary abnormality is seen. Dictated by: Rc Douglas M.D. on 01/12/2025 at 18:13 Approved by: Rc Douglas M.D. on 01/12/2025 at 18:14
== END ==
PROVIDERS: PCP Family Medicine; Referring Provider Family Medicine; Visit Provider Family Medicine
DX: J45.909 Unspecified asthma, uncomplicated (principal)
CPT/HCPCS: 71046

== ENCOUNTER → 2025-03-24 15:35 | Outpatient (CLI) | payer OTHER, SELFPAY ==
[2024-08-10 22:27] VITALS: BMI 24.3
== END ==
LOC: RESP 15:35
PROVIDERS: PCP Family Medicine; Referring Provider Family Medicine; Visit Provider Family Medicine
DX: J44.9 Chronic obstructive pulmonary disease, unspecified (principal); I50.9 Heart failure, unspecified; J45.998 Other asthma
CPT/HCPCS: 94060; 94726; 94729

== ENCOUNTER → 2025-05-02 13:20 | Outpatient (CLI) | payer OTHER, SELFPAY ==
[2024-08-10 22:27] VITALS: BMI 24.3
--- NOTE | 2025-05-02 13:22 | DI.CT.S_ITS ---
PROCEDURE: CT CHEST WO CON INDICATIONS: asthma TECHNIQUE: Noncontrast 5 mm thick sections acquired from the pulmonary apices to the posterior costophrenic angles. 1 mm lung window, 5 mm thick coronal and sagittal and 7 mm axial MIP reformats were then acquired. For radiation dose reduction, the following was used: automated exposure control, adjustment of mA and/or kV according to patient size. COMPARISON: [facility], CT, CT ANGIO CHEST PE PROTOCOL, 08/10/2024, 20:00. FINDINGS: Image quality: Diagnostic. Lungs and Pleura: Bilateral lower lung bronchial wall thickening and narrowing with mucous plugging and moderate consolidative changes both lower lungs, most prominent at the right lung base. Findings superimposed on mild upper lobe centrilobular and paraseptal emphysematous changes. No pleural effusions or pleural plaquing. No suspicious pulmonary nodule or mass requiring follow-up. Lower Neck: No enlarged lymph nodes. Thyroid: Normal CT appearance. Axillae: No enlarged lymph nodes. Chest Wall: No suspicious chest wall lesions. Bones: No suspicious bone lesions. Ankylosing spondylitis and dextroscoliosis in the spine. No acute fractures. Thoracic Vessels: Pulmonary artery outflow tract is enlarged at 3.8 cm. Moderate aortic arch calcification. Normal caliber aorta. Mediastinum and Blank: Prominent prevascular lymph nodes, actually decreased in size compared to prior. No bulky hilar adenopathy. Heart: Heart size is normal. No pericardial effusion. Mild coronary artery and aortic valvular calcification Esophagus: No wall thickening. No hiatal hernia. Upper Abdomen: Intrahepatic biliary dilatation, similar compared to prior. Visible portions of upper abdominal organs are otherwise normal. IMPRESSION: Interval resolution of bilateral lower lobe pneumonitis compared to August 2024. There is persistent lower lobe bronchial wall thickening and possibly atelectatic change or minor bronchopneumonia, predominantly at the right lung base. Emphysematous changes and probably secondary pulmonary artery hypertension. Dictated by: Carmencita Pacheco M.D. on 05/03/2025 at 0:10 Approved by: Carmencita Pacheco M.D. on 05/03/2025 at 0:19
== END ==
LOC: CT 13:21
PROVIDERS: PCP Family Medicine; Referring Provider Family Medicine; Visit Provider Family Medicine
DX: J45.998 Other asthma (principal)
CPT/HCPCS: 71250